=== PATIENT | female | born 1990 | race Caucasian/White ===

== ENCOUNTER 2018-11-29 09:12 | Outpatient (REF) | payer MEDICAID, SELFPAY ==
[2018-11-29 20:06] LABS: HCG Qual (Serum) Negative
== END 2018-11-29 09:32 ==
LOC: NCHCN 09:12
PROVIDERS: PCP Internal Medicine; Visit Provider Nurse Practitioner Family
DX: N91.2 Amenorrhea, unspecified (principal)
CPT/HCPCS: 84703

== ENCOUNTER 2019-06-07 17:44 | Outpatient (REF) | payer MEDICAID, SELFPAY | END 2019-06-07 18:04 | LOC: NCHCN 17:44 | PROVIDERS: PCP Internal Medicine; Visit Provider Nurse Practitioner Family | DX: N89.8 Other specified noninflammatory disorders of vagina (principal) | CPT/HCPCS: 87480; 87510; 87660 ==